=== PATIENT | male | born 1970 | race Caucasian/White ===

== ENCOUNTER 2021-08-18 20:08 | Emergency (ER) | payer OTHER, SELFPAY ==
[~2021-08-18] VITALS: Ht 188 cm; Wt 90.7 kg
--- NOTE | 2021-08-18 20:12 | NUR ---
Patient to ER bed Tent 1 to gown for evaluation. Side rails up.
--- NOTE | 2021-08-18 20:15 | NUR ---
Pt brought by family member, A&Ox4,ambulatory, pt presents to ER with cough, congestion, weakness,fever x 7 days. Per patient he had a positive covid test yesterday, O2 96%, temp 100.4,respirations even and unlabored, cap refill <3, will cont to monitor.
[2021-08-18 20:22] VITALS: BP_SYST 115
--- NOTE | 2021-08-18 20:32 | NUR ---
covid test done and sent to lab.
--- NOTE | 2021-08-18 20:45 | NUR ---
Pt O2 is 97 % during ambulation, notified
--- NOTE | 2021-08-18 21:00 | NUR ---
Pt states he has been taking tylenol 500 q 8 hours and Ibuprofen 800 mg q 4 hours , awared
[2021-08-18] MEDS ORDERED: ACETAMINOPHEN 500 MG TABLET PO ONE (21:15)
--- NOTE | 2021-08-18 21:25 | NUR ---
Dr Cee evaluating patient at bedside
--- NOTE | 2021-08-18 21:41 | NUR ---
room 8 to be terminally cleaned.
[2021-08-18] MEDS ORDERED: ONDANSETRON 4 MG ODT TAB PO ONE (21:45)
[2021-08-18] MEDS ORDERED: NACL 0.9% 1,000 ML IV ONE (21:45)
[2021-08-18] MEDS ORDERED: DICYCLOMINE HCL 10 MG/5 ML SOLUTION PO ONE (21:45)
[2021-08-18] MEDS ORDERED: FAMOTIDINE 20 MG TABLET PO ONE (21:45)
[2021-08-18] MEDS ORDERED: MAG-AL HYDROX/SIMETH 30 ML UDC PO ONE (21:45)
[2021-08-18] MEDS ORDERED: LIDOCAINE VISCOUS 2%, 15 ML UDC MM ONE (21:45)
--- NOTE | 2021-08-18 21:58 | NUR ---
rounding done, patient comfortable, denies any needs at this time, warm blanket provided per request.
[2021-08-18 22:19] LABS: HEMATOCRIT 46.7 % (36-54); HEMOGLOBIN 15.7 g/dL (14.0-18.0); MEAN CORPUSCULAR HEMOGLOBIN 28 pg (27-31); MEAN CORPUSCULAR HGB CONC 34 % (32-36); MEAN CORPUSCULAR VOLUME 82 fL (79.0-98.0); PLATELET COUNT (AUTO) 85 K/uL (130-430); RED BLOOD CELL COUNT(AUTO) 5.69 MIL/uL (4.2-6.2); RED CELL DISTRIBUTION WIDTH 15.6 % (9.0-15.0)
[2021-08-18 22:25] LABS: WHITE BLOOD COUNT (AUTO) 2.7 K/uL (4.8-10.8)
[2021-08-18 22:29] LABS: CALCIUM 7.8 mg/dL (8.4-11.0); CREATININE 1.17 mg/dL (0.55-1.30)
[2021-08-18 22:34] LABS: ALBUMIN 3.2 g/dL (3.4-4.8); TOTAL BILIRUBIN 0.3 mg/dL (0.0-1.0)
[2021-08-18 22:43] LABS: ATYPICAL LYMPHOCYTES % 0 % (0-0); BAND % (MANUAL) 0 % (0-6); BASOPHILS % (MANUAL) 0 % (0-2); EOSINOPHILS % (MANUAL) 0 % (0-7); LYMPHOCYTES % (MANUAL) 11 % (20-46); MONOCYTES % (MANUAL) 9 % (0-11)
[2021-08-18 22:50] LABS: BILIRUBIN,URINE NEGATIVE (NEGATIVE); CLARITY/URINE CLEAR (CLEAR); COLOR,URINE YELLOW (YELLOW); GLUCOSE,URINE NEGATIVE (NEGATIVE); KETONES,URINE 1+ (NEGATIVE); LEUKOCYTE ESTERASE ,URINE NEGATIVE (NEGATIVE); NITRITE, URINE NEGATIVE (NEGATIVE); PROTEIN URINE 1+ (NEGATIVE); UROBILINOGEN,URINE 0.2 (0.2-1.0)
[2021-08-18 22:51] LABS: BLOOD, URINE TRACE (NEGATIVE)
[2021-08-18 23:00] LABS: BACTERIA,URINE RARE /HPF (None Seen); MUCUS,URINE None Seen /LPF (None Seen); RBC,URINE 0-3 /HPF (0-3)
[2021-08-19] MEDS ORDERED: FAMO-132 PO (00:10)
[2021-08-19 00:25] VITALS: BP_SYST 120
--- NOTE | 2021-08-19 00:25 | NUR ---
Patient given written and verbal discharge instructions and verbalizes understanding. ANISH DIAMOND MD discussed with patient the results and treatment provided. Patient in stable condition. ID arm band removed. Patient educated on pain management and to follow up with PMD. Pain Scale 0/10. Opportunity for questions provided and answered. Medication side effect fact sheet provided.
== END 2021-08-19 00:25 | disposition home or self-care (01) ==
LOC: SED 20:08
DX: U07.1 COVID-19 (principal); K29.70 Gastritis, unspecified, without bleeding; I10 Essential (primary) hypertension; Z79.899 Other long term (current) drug therapy
CPT/HCPCS: 36415; 80053; 81000; 83690; 85007; 85027; 87426; 93005; 96360; 99284; J2001; J7030; Q0162